=== PATIENT | male | born 1970 | race Two or more races ===

== ENCOUNTER 2018-06-14 21:03 | Inpatient (IN) | payer BC, MEDICAID ==
[~2018-06-14] VITALS: Ht 175.3 cm; Wt 86.6 kg
--- NOTE | 2018-06-14 21:09 | NUR ---
BBSELF FROM HOME C/C MIDSTERNAL CP NR 1 WEEK, WORSE TODAY. +N,V. DENIES SOB. PT PLACED ON HEALTH COACH AND POX. NO S/S OF ACUTE DISTRESS NOTED. RR EVEN AND UNLABORED. MD AWARE OF PT. WILL CONTINUE TO MONITOR.
[2018-06-14] MEDS ORDERED: LORAZEPAM 0.5 MG TABLET ONE (21:45)
[2018-06-14] MEDS ORDERED: ASPIRIN 81 MG TAB.CHEW ONE (21:45)
[2018-06-14] MEDS ORDERED: NITROGLYCERIN PACKET 1 GM PACKET ONE (21:45)
[2018-06-14] MEDS ORDERED: ASPIRIN 325 MG TABLET PO ONE (22:00)
[2018-06-14] MEDS ORDERED: LORAZEPAM 0.5 MG TABLET PO ONE (22:00)
[2018-06-14] MEDS ORDERED: NITROGLYCERIN PACKET 1 GM PACKET TD ONE (22:00)
[2018-06-14 22:13] LABS: BASOPHILS # (AUTO) 0.1 /CMM (0.0-0.2); BASOPHILS % (AUTO) 1.3 % (0.0-2.0); EOSINOPHILS % (AUTO) 0.5 % (0.0-6.0); HEMATOCRIT 43 % (39-51); HEMOGLOBIN 14.6 g/dL (13.5-17.5); LYMPHOCYTES # (AUTO) 2.7 /CMM (0.8-4.8); LYMPHOCYTES % (AUTO) 26.3 % (20.0-44.0); MEAN CORPUSCULAR HGB CONC 34 g/dl (31.0-36.0); MEAN CORPUSCULAR VOLUME 89 fL (80-96); MONOCYTES # (AUTO) 0.9 /CMM (0.1-1.30); MONOCYTES % (AUTO) 8.8 % (2.0-12.0); NEUTROPHILS # (AUTO) 6.4 /CMM (1.8-8.9); NEUTROPHILS % (AUTO) 63.1 % (43.0-81.0); PLATELET COUNT (AUTO) 326 /CMM (150-450); WHITE BLOOD COUNT (AUTO) 10.1 K/uL (4.3-11.0)
[2018-06-14] MEDS ORDERED: INSULIN REGULAR, HUMAN 100 UNIT/ML 10 ML VIAL ONE (22:24)
[2018-06-14] MEDS ORDERED: INSULIN REGULAR, HUMAN 100 UNIT/ML 10 ML VIAL SQ ONE (22:30)
[2018-06-14 22:33] LABS: ALANINE AMINOTRANSFERASE 24 U/L (12-78); ALBUMIN 2.7 g/dL (3.4-5.0); ALKALINE PHOSPHATASE 122 U/L (46-116); ASPARTATE AMINOTRANSFERASE 10 U/L (15-37); B-TYPE NATRIURETIC PEPTIDE 57 PG/ML (0-125); BILIRUBIN,TOTAL 0.3 mg/dL (0.2-1.0); CALCIUM, SERUM 8.1 mg/dL (8.5-10.1); CARBON DIOXIDE 23 mmol/L (21-32); CHLORIDE 97 mmol/L (98-107); CREATININE 1.2 mg/dL (0.6-1.3); POTASSIUM 3.7 mmol/L (3.5-5.1); SODIUM SERUM 129 mmol/L (136-145); TOTAL PROTEIN, SERUM 6.8 g/dL (6.4-8.2); UREA NITROGEN, BLOOD 15 mg/dL (7-18)
[2018-06-14 22:34] LABS: GLUCOSE 474 mg/dL (74-106)
[2018-06-14] MEDS ORDERED: DEXTROSE 50%-WATER 50 ML DISP.SYRIN IV PRN (23:30)
[2018-06-14] MEDS ORDERED: ONDANSETRON HCL/PF 4 MG/2 ML VIAL IVP PRN (23:30)
[2018-06-14] MEDS ORDERED: HYDROCODONE/APAP 5/325MG 1 EACH TABLET PO PRN (23:30)
[2018-06-14] MEDS ORDERED: HYDROCODONE/APAP 10/325MG 1 EA TABLET PO PRN (23:30)
[2018-06-14] MEDS ORDERED: Z GUARD REMEDY 2 OZ OINT TP PRN (23:30)
[2018-06-14] MEDS ORDERED: MAG HYDROX/AL HYDROX/SIMETH 30 ML UDC PO PRN (23:30)
[2018-06-14] MEDS ORDERED: ACETAMINOPHEN 325 MG TABLET PO PRN (23:30)
[2018-06-14] MEDS ORDERED: MAGNESIUM HYDROXIDE 30 ML UDC PO PRN (23:30)
--- NOTE | 2018-06-14 23:35 | NUR ---
Report given to Thelma MONSIVAIS for continuation of care.
--- NOTE | 2018-06-14 23:36 | NUR ---
PT ASSIGNED TO 322-1
[2018-06-15] VITALS (7 sets, daily range): BP systolic 116–145; BP diastolic 63–95
[2018-06-15] MEDS ORDERED: ENOXAPARIN SODIUM 40 MG/0.4 ML DISP.SYRIN SQ ONE (01:00)
[2018-06-15] MEDS ORDERED: NITROGLYCERIN 0.4 MG/TAB BOTTLE SL PRN (01:30)
[2018-06-15] MEDS: IV NS 0.9% 1,000 ML IV PRN ×2 (01:31→23:12)
[2018-06-15] MEDS ORDERED: CARV3.12 PO (01:40)
[2018-06-15] MEDS ORDERED: METF-442 PO (01:40)
[2018-06-15] MEDS ORDERED: DOXY100C41 PO (01:40)
[2018-06-15] MEDS ORDERED: LISI-603 PO (01:40)
[2018-06-15] MEDS ORDERED: ATOR80TA PO (01:40)
[2018-06-15] MEDS ORDERED: ASPI-605 PO (01:40)
[2018-06-15] MEDS ORDERED: ALLO100T PO (01:40)
[2018-06-15] MEDS: BLOOD SUGAR DIAGNOSTIC 1 EACH STRIP IN SCH ×4 (06:11→21:04)
--- NOTE | 2018-06-15 06:27 | NUR ---
GROMMET MACHINE OPERATOR NOTES AWAKE & RESPONSIVE. NOT IN ANY DISTRESS. NO SOB NOTED. DENIES ANY PAIN OR DISCOMFORT AT THIS TIME. ON TELE SR @ 70 WITH IVF INFUSING WELL. MONITORED ACCORDINGLY. CALL LIGHT WITHIN REACH. BED IN LOWEST POSITION. SR UP X2 FOR SAFETY. WILL ENDORSE TO NEXT SHIFT.
[2018-06-15 07:27] LABS: BASOPHILS # (AUTO) 0.1 /CMM (0.0-0.2); BASOPHILS % (AUTO) 0.7 % (0.0-2.0); EOSINOPHILS % (AUTO) 0.7 % (0.0-6.0); HEMATOCRIT 42 % (39-51); HEMOGLOBIN 14.4 g/dL (13.5-17.5); LYMPHOCYTES # (AUTO) 2.5 /CMM (0.8-4.8); LYMPHOCYTES % (AUTO) 28.9 % (20.0-44.0); MEAN CORPUSCULAR HGB CONC 34 g/dl (31.0-36.0); MEAN CORPUSCULAR VOLUME 87 fL (80-96); MONOCYTES # (AUTO) 0.8 /CMM (0.1-1.30); MONOCYTES % (AUTO) 8.9 % (2.0-12.0); NEUTROPHILS # (AUTO) 5.2 /CMM (1.8-8.9); NEUTROPHILS % (AUTO) 60.8 % (43.0-81.0); PLATELET COUNT (AUTO) 330 /CMM (150-450); RED BLOOD CELL COUNT(AUTO) 4.81 MIL/uL (4.5-6.0); WHITE BLOOD COUNT (AUTO) 8.6 K/uL (4.3-11.0)
[2018-06-15 07:43] LABS: CHOLESTEROL 194 mg/dL (<200); HDL CHOLESTEROL 29 mg/dL (40-60); LDL 93 mg/dL (0-99); THYROID STIMULATING HORMONE 2.077 uIU/mL (0.358-3.74); TRIGLYCERIDES 653 mg/dL (30-150)
[2018-06-15 07:45] LABS: CALCIUM, SERUM 8.6 mg/dL (8.5-10.1); CARBON DIOXIDE 24 mmol/L (21-32); CHLORIDE 100 mmol/L (98-107); CREATININE 0.9 mg/dL (0.6-1.3); MAGNESIUM 1.7 mg/dL (1.8-2.4); PHOSPHORUS 3.1 mg/dL (2.5-4.9); POTASSIUM 3.5 mmol/L (3.5-5.1); SODIUM SERUM 134 mmol/L (136-145); UREA NITROGEN, BLOOD 13 mg/dL (7-18)
[2018-06-15 07:49] LABS: GLUCOSE 354 mg/dL (74-106)
--- NOTE | 2018-06-15 07:56 | NUR ---
MARINE STEAMFITTER NOTES RECEIVED A CALL FROM EVELIN WONG DUE TO CRITICAL HGBA1C OF 354.
--- NOTE | 2018-06-15 07:56 | NUR ---
MASH FILTER PRESS OPERATOR OPENING NOTES RECEIVED PATIENT ON BED, A/O X 4 AND ABLE TO MAKE NEEDS KNOWN. RESPONSIVE TO ALL STIMULI. RESPIRATION EVEN AND NON LABORED WITH NO ACUTE RESPIRATORY DISTRESS. ABDOMEN SOFT AND NON DISTENDED WITH ACTIVE BOWEL SOUNDS. SKIN WARM TO TOUCH AND DRY. DENIES PAIN AND DISCOMFORT AT THIS TIME. IV SITE AT RIGHT HAND 20 GAUGE PATENT IN FLUSHING, SITE NO S/SX OF INFILTRATION RUNNING NS AT 50 ML/HR. PER TELE MONITOR WITH SR 93. ALL CONCERNS ADDRESSED, PLACED CALL LIGHT WITHIN REACH TO ENSURE SAFETY.
--- NOTE | 2018-06-15 08:00 | NUR ---
[facility] [employer] [facility] NOTES CRITICAL HGBA1C LEVEL PAGED TO DR. AGUILAR, WILL SEE PATIENT ON FLOOR. WILL CONTINUE TO EVALUATE PATIENT.
[2018-06-15] MEDS: ATORVASTATIN 40 MG TABLET PO SCH (08:41)
[2018-06-15] MEDS: METFORMIN 500 MG TABLET PO SCH ×2 (08:41→17:08)
[2018-06-15] MEDS: ASPIRIN EC 81 MG TABLET.DR PO SCH (08:41)
[2018-06-15] MEDS: LISINOPRIL (20MG) 20 MG TABLET PO SCH (08:41)
[2018-06-15] MEDS ORDERED: ALLOPURINOL 100 MG TABLET PO SCH (09:00)
[2018-06-15] MEDS ORDERED: CARVEDILOL 3.125 MG TABLET PO SCH (09:00)
[2018-06-15] MEDS ORDERED: ASPIRIN 81 MG TAB.CHEW PO SCH (09:00)
--- NOTE | 2018-06-15 09:45 | NUR ---
M/S RN NOTES BS 414, DR. AGUILAR MADE AWARE. LANTUS GIVEN 15 UNITS ORDERED ON LEFT DELTOID AND ABLE TO TOLERATE WELL. WILL CONTINUE TO EVALUATE CARE.
[2018-06-15] MEDS: INSULIN GLARGINE, 100 UNIT/ML CARTRIDGE SQ SCH ×2 (09:47→20:53)
[2018-06-15] MEDS: Magnesium 1GM/D5W 100ML PREMIX 100 ML IV SCH ×2 (10:53→11:50)
--- NOTE | 2018-06-15 11:25 | NUR ---
M/S RN NOTES PATIENT WHEELED VIA GURNEY FOR CT ANGIOGRAM HEART WITH AILYN.
[2018-06-15] MEDS ORDERED: IOHEXOL-350 100 ML VIAL IV ONE (11:30)
[2018-06-15] MEDS ORDERED: CT SWABBABLE VALVE TRANS SET 1 EA INFUS.SET MC ONE (11:31)
[2018-06-15] MEDS ORDERED: IV NS 0.9% 250 ML IV ONE (11:31)
[2018-06-15] MEDS ORDERED: VERAPAMIL HCL IV 5 MG/2 ML VIAL ONE (11:39)
[2018-06-15] MEDS ORDERED: NITROGLYCERIN 4.9 GM SPRAY SL ONE (12:00)
--- NOTE | 2018-06-15 12:12 | NUR ---
M/S RN NOTES PATIENT RETURNED TO [address] VERAPAMIL IV GIVEN PER AILYN. WILL CONTINUE TO EVALUATE CARE
[2018-06-15] MEDS: INSULIN REGULAR, HUMAN 100 UNIT/ML 3 ML VIAL SQ PRN ×3 (12:20→21:17)
[2018-06-15] MEDS: VERAPAMIL HCL IV 5 MG/2 ML VIAL IV ONE ×2 (12:26→12:49)
--- NOTE | 2018-06-15 12:26 | NUR ---
cta complete pt developed sob and diaphoretic midway scan nursing intervention inititated o2 mask checked bs 363 eventually pt started to feel better vs stable cta complete moved pt back to floor report given to rn in charge on the floor regarding findings and high blood sugar, notified dr. Grimaldo via phone regarding findings no new order to continue to monitor. pt back in room eating lunch awake alert x4
[2018-06-15] MEDS: IV NS 0.9% 500 ML IV ONE ×2 (12:42→12:49)
[2018-06-15] MEDS: METOPROLOL TARTRATE 50 MG TABLET PO SCH ×3 (12:43→23:11)
--- NOTE | 2018-06-15 12:50 | NUR ---
M/S RN NOTES NS 500, VERAPAMIL AND NITROLINGUAL SPRAY GIVEN AT CT. WILL CONTINUE TO MONITOR PATIENT.
--- NOTE | 2018-06-15 15:53 | NUR ---
MS/RN SPOKE WITH DR GUNN AND RELAYED PATIENT CTA RESULTS. PER DR GUNN, HE IS AWARE OF THE RESULTS, PLEASE ASK THE PATIENT IF HE CAN PROVIDE WHERE HE HAD HIS CABG DONE AND OPERATIVE NOTES. PATIENT NOTIFIED. WILL CONTINUE TO MONITOR FOR FURTHER CHANGES AND TO ENSURE SAFETY.
--- NOTE | 2018-06-15 16:48 | NUR ---
MS/RN PER PATIENT HE HAD CABG AND CARDIAC CATHETER PERFORMED AT [facility] IN 2014. SPOKE WITH HUGO FROM [facility] MEDICAL RECORDS, PROVIDED SOH 3W FAX # [phone] AND REQUEST FOR PATIENT MEDICAL RECORD INFORMATION. RECEIVED PATIENT MEDICAL RECORD INFORMATION FROM [facility] AND PLACED IN FRONT OF CHART. WILL NOTIFY CUPOLA MELTING SUPERVISOR IN AM.
--- NOTE | 2018-06-15 18:50 | NUR ---
M/S RN NOTES METFORMIN WILL BE PLACED IN FOR 48 HOURS DUE TO CTA WITH CONTRAST, BEGIN ON 06/18/2018 AM. WILL ENDORSE TO NEXT SHIFT.
--- NOTE | 2018-06-15 19:02 | NUR ---
M/S RN CLOSING NOTES PATIENT A/O X 4 AND ABLE TO MAKE NEEDS KNOWN, RESPONSIVE TO ALL STIMULI. RESPIRATION EVEN AND NON LABORED WITH NO ACUTE RESPIRATORY DISTRESS, ON O2 AT 3LPM VIA NASAL CANNULA AND TOLERATED WELL. ABDOMEN SOFT AND NON DISTENDED WITH ACTIVE BOWEL SOUNDS. SKIN WARM TO TOUCH AND DRY. PATIENT DENIES PAIN AND DISCOMFORT AT THIS TIME. IV SITE AT RIGHT AC GAUGE 18 AND RIGHT HAND GAUGE 20 PATENT IN FLUSHING. ALL CONCERNS ADDRESSED. PLACED CALL LIGHT WITHIN REACH FOR SAFETY. ENDORSED TO NEXT SHIFT.
--- NOTE | 2018-06-15 19:53 | NUR ---
RN OPENING NOTES RECEIVED PATIENT AWAKE, RESTING IN BED. PATIENT IS ALERT AND ORIENTED X 4. NO SIGNS OF RESPIRATORY DISTRESS OR SHORTNESS OF BREATH. PATIENT DENIES PAIN AT THIS TIME. IV SITE PATENT AND INTACT. CALL LIGHT WITHIN REACH. WILL CONTINUE TO MONITOR PATIENT THROUGHOUT THE SHIFT.
--- NOTE | 2018-06-15 21:55 | NUR ---
Met with patient at bedside. States he lives alone in [place], he is currently visiting his sister who lives in the [place]. States he is ambulatory and independent with adl's. States he is diabetic but does not monitor blood sugar at home. He was advised with the importance of monitoring his blood sugar and medication/diet compliance. States he has no pcp and will find pcp in [place] once he gets discharge. Addendum: 06/15/18 at 2155 by TITA MULLER RN Amended: Links added.
[2018-06-15] MEDS ORDERED: ENOXAPARIN SODIUM 40 MG/0.4 ML DISP.SYRIN SQ SCH (22:00)
[2018-06-16] MEDS: METOPROLOL TARTRATE 50 MG TABLET PO SCH (05:17)
[2018-06-16] MEDS: INSULIN REGULAR, HUMAN 100 UNIT/ML 3 ML VIAL SQ PRN (06:31)
--- NOTE | 2018-06-16 06:37 | NUR ---
RN CLOSING NOTES PATIENT IS RESTING COMFORTABLY IN BED. PATIENT HAS NO SIGNS OF RESPIRATORY DISTRESS OR SHORTNESS OF BREATH. PATIENT HAS NO SIGNS OF FACIAL GRIMACING AT THIS TIME. IV SITE PATENT AND INTACT. SAFETY PRECAUTIONS IMPLEMENTED. CALL LIGHT WITHIN REACH. NEEDS WERE MET DURING THE SHIFT. WILL ENDORSE TO ONCOMING AM RN.
--- NOTE | 2018-06-16 07:25 | NUR ---
M/S RN OPENING NOTES RECEIVED PATIENT ON BED SLEEPING BUT EASILY AROUSABLE, A/O X 4 AND ABLE TO MAKE NEEDS KNOWN. RESPONSIVE TO ALL STIMULI. RESPIRATION EVEN AND NON LABORED WITH NO ACUTE RESPIRATORY DISTRESS IN ROOM AIR. ABDOMEN SOFT AND NON DISTENDED WITH ACTIVE BOWEL SOUNDS TO ALL QUADRANTS. SKIN WARM TO TOUCH AND DRY. PATIENT DENIES PAIN AND DISCOMFORT. IV SITE AT RIGHT HAND GAUGE 20 AND RIGHT AC 18 GAUGE PATENT IN FLUSHING, SITE NO S/SX OF INFILTRATION. ALL CONCERNS ADDRESSED, PLACED CALL LIGHT WITHIN REACH TO ENSURE SAFETY. WILL CONTINUE TO EVALUATE CARE.
[2018-06-16] MEDS: BLOOD SUGAR DIAGNOSTIC 1 EACH STRIP IN SCH (07:44)
[2018-06-16 08:00] VITALS: BP 156/100
[2018-06-16] MEDS: ATORVASTATIN 40 MG TABLET PO SCH (08:43)
[2018-06-16 08:44] VITALS: BP 156/100
[2018-06-16] MEDS: LISINOPRIL (20MG) 20 MG TABLET PO SCH (08:44)
[2018-06-16] MEDS: ASPIRIN EC 81 MG TABLET.DR PO SCH (08:44)
[2018-06-16] MEDS ORDERED: VALSARTAN 80 MG TABLET PO SCH (09:00)
[2018-06-16] MEDS ORDERED: ALLOPURINOL 100 MG TABLET PO SCH (09:00)
[2018-06-16] MEDS: METFORMIN 500 MG TABLET PO SCH (09:00)
[2018-06-16] MEDS: INSULIN GLARGINE, 100 UNIT/ML CARTRIDGE SQ SCH (09:17)
--- NOTE | 2018-06-16 09:31 | NUR ---
M/S RN NOTES METFORMIN HELD DUE TO CTA WITH DYE DONE 06/15/18. PATIENT NOTIFIED. WILL CONTINUE TO MONITOR
[2018-06-16] MEDS ORDERED: MAGNESIUM OXIDE 400 MG TABLET PO ONE (10:00)
--- NOTE | 2018-06-16 10:43 | NUR ---
MS/RADAR SIGNAL PROCESSING ENGINEER PATIENT DISCHARGE HOME IN STABLE CONDITION. A/O X 4. NO SIGNS OF ACUTE DISTRESS. NO COMPLAIN OF PAIN OR DISCOMFORT. DISCHARGE EDUCATION AND TEACHINGS PROVIDED, NOTIFIED TO FOLLOW UP WITH PRIMARY PHYSICIAN AND SOLDER TECHNICIAN IN ONE WEEK. CONTINUE TO TAKE PRESCRIBED MEDICATIONS ORDERED. PRESCRIPTION PROVIDED. HOLD METFORMIN MEDICATION TODAY AND TOMORROW AND RESUME TAKING METFORMIN ORDERED ON 06/18/18. PATIENT VERBALIZED UNDERSTANDING. NAME BAND AND IV LINE REMOVED. ALL NEEDS ATTENDED TO. LEFT IN STABLE CONDITION ACCOMPANIED BY SISTER VIA PRIVATE CAR.
== END 2018-06-16 10:50 | disposition home or self-care (01) | DRG 303 ==
LOC: ER 21:03 → TELE 06-15 00:13 → MED 06-15 08:27
PROVIDERS: ADMIT Nurse Practitioner Acute Care; ATTEND Internal Medicine
DX: I25.110 Atherosclerotic heart disease of native coronary artery with unstable angina pectoris (principal); E44.0 Moderate protein-calorie malnutrition; E87.1 Hypo-osmolality and hyponatremia; E11.65 Type 2 diabetes mellitus with hyperglycemia; E78.5 Hyperlipidemia, unspecified; M1A.9XX1 Chronic gout, unspecified, with tophus (tophi); Z95.5 Presence of coronary angioplasty implant and graft; Z95.1 Presence of aortocoronary bypass graft; Z87.891 Personal history of nicotine dependence; Z83.3 Family history of diabetes mellitus; Z79.4 Long term (current) use of insulin; F15.90 Other stimulant use, unspecified, uncomplicated; J44.9 Chronic obstructive pulmonary disease, unspecified; I10 Essential (primary) hypertension; Z88.2 Allergy status to sulfonamides; F10.10 Alcohol abuse, uncomplicated; Y90.9 Presence of alcohol in blood, level not specified; Z79.82 Long term (current) use of aspirin; Z79.84 Long term (current) use of oral hypoglycemic drugs; Z79.899 Other long term (current) drug therapy; E86.1 Hypovolemia
CPT/HCPCS: 36415; 71045-TC; 75574; 80048-TC; 80061-TC; 80076-TC; 82962-TC; 83735-TC; 83880; 84100-TC; 84443-TC; 84484-TC; 84550-TC; 85025-TC; 87081-TC; 93307-TC; G0378; J1650; J1815; J3475; J3490; J7030; J7040; J7050; Q9967

== ENCOUNTER 2018-07-24 17:06 | Emergency (ER) | payer BC, MEDICAID ==
[~2018-07-24] VITALS: Ht 170.2 cm; Wt 93.0 kg
[~2018-07-24 17:06] MED LIST: ALLO100T PO; ASPI-605 PO; ATOR80TA PO; LISI-603 PO; METF-442 PO
--- NOTE | 2018-07-24 17:30 | NUR ---
CAME IN FOR COUGH x 1 WEEK, PT NOTED W GREENISH PHLEGM WHEN COUGHING, ALSO C/O CONGESTION AND CHEST PAIN WHEN COUGHING. TO ER BED 11, HOOKED TO MONITOR, PROVIDED W WARM BLANKET, AWAITING MD CHANDLER
[2018-07-24] MEDS ORDERED: NITROGLYCERIN PACKET 1 GM PACKET ONE (18:04)
[2018-07-24] MEDS ORDERED: ASPIRIN 325 MG TABLET ONE (18:04)
[2018-07-24] MEDS: ASPIRIN 325 MG TABLET PO ONE (18:07)
--- NOTE | 2018-07-24 18:08 | NUR ---
CALLED NURSING SUP FOR TELE BED
[2018-07-24] MEDS: NITROGLYCERIN PACKET 1 GM PACKET TOP ONE (18:09)
[2018-07-24] MEDS ORDERED: METF-440 PO (18:15)
[2018-07-24] MEDS ORDERED: FEBU40TA PO (18:15)
[2018-07-24] MEDS ORDERED: INSU100V7 SQ (18:15)
[2018-07-24] MEDS ORDERED: ALBU8.5H8 IH (18:15)
[2018-07-24] MEDS ORDERED: ALBUTEROL FS 2.5 MG/3 ML VIAL.NEB ONE (18:33)
[2018-07-24] MEDS ORDERED: IPRATROPIUM NEB FS 0.5 MG/2.5 ML AMPUL.NEB ONE (18:33)
[2018-07-24 18:35] LABS: BASOPHILS # (AUTO) 0.1 /CMM (0.0-0.2); BASOPHILS % (AUTO) 1.2 % (0.0-2.0); EOSINOPHILS % (AUTO) 0.1 % (0.0-6.0); HEMATOCRIT 47 % (39-51); HEMOGLOBIN 16.1 g/dL (13.5-17.5); LYMPHOCYTES # (AUTO) 1.7 /CMM (0.8-4.8); LYMPHOCYTES % (AUTO) 28.6 % (20.0-44.0); MEAN CORPUSCULAR HGB CONC 35 g/dl (31.0-36.0); MEAN CORPUSCULAR VOLUME 88 fL (80-96); MONOCYTES # (AUTO) 0.9 /CMM (0.1-1.30); MONOCYTES % (AUTO) 14.7 % (2.0-12.0); NEUTROPHILS # (AUTO) 3.3 /CMM (1.8-8.9); NEUTROPHILS % (AUTO) 55.4 % (43.0-81.0); PLATELET COUNT (AUTO) 188 /CMM (150-450)
[2018-07-24] MEDS: ALBUTEROL FS 2.5 MG/3 ML VIAL.NEB NEB ONE (18:38)
[2018-07-24] MEDS: IPRATROPIUM NEB FS 0.5 MG/2.5 ML AMPUL.NEB NEB ONE (18:38)
--- NOTE | 2018-07-24 18:38 | NUR ---
RT AT BEDSIDE, STARTED WITH BREATHING TREATMENT
[2018-07-24 19:06] LABS: CALCIUM, SERUM 8.9 mg/dL (8.5-10.1); CARBON DIOXIDE 25 mmol/L (21-32); CHLORIDE 104 mmol/L (98-107); GLUCOSE 180 mg/dL (74-106); POTASSIUM 4.1 mmol/L (3.5-5.1); SODIUM SERUM 140 mmol/L (136-145); UREA NITROGEN, BLOOD 14 mg/dL (7-18)
[2018-07-24] MEDS ORDERED: HYDROCODONE BIT/HOMATROPINE 5 ML UDC ONE (19:07)
[2018-07-24] MEDS: HYDROCODONE BIT/HOMATROPINE 5 ML UDC PO ONE (19:11)
[2018-07-24 19:12] LABS: ALANINE AMINOTRANSFERASE 31 U/L (12-78); ALBUMIN 3.8 g/dL (3.4-5.0); ALKALINE PHOSPHATASE 104 U/L (46-116); ASPARTATE AMINOTRANSFERASE 20 U/L (15-37); BILIRUBIN,TOTAL 0.4 mg/dL (0.2-1.0); TOTAL PROTEIN, SERUM 7.6 g/dL (6.4-8.2)
[2018-07-24] MEDS: LISINOPRIL (20MG) 20 MG TABLET PO ONE (19:17)
--- NOTE | 2018-07-24 19:19 | NUR ---
REPORT GIVEN TO NADJA ROMAN RN FOR ZEENAT
--- NOTE | 2018-07-24 19:27 | NUR ---
RECEIVED REPORT FROM YODIT PERRY FOR ZEENAT. PT IS AAOX4, NOT IN RESPIRATORY DISTRESS, WILL CONTINUE TO MONITOR.
--- NOTE | 2018-07-24 20:10 | NUR ---
SANDWICH PROVIDED, AWAITING REPEAT TROPONIN.
--- NOTE | 2018-07-24 20:22 | NUR ---
KI SEBD TEACHER AT BEDSIDE FOR EVAL.
[2018-07-24] MEDS ORDERED: GUAIFENESIN 300 MG/15 ML UDC ONE (21:02)
[2018-07-24] MEDS: GUAIFENESIN 300 MG/15 ML UDC PO ONE (21:04)
--- NOTE | 2018-07-25 00:23 | NUR ---
REPEAT EKG AND TROPONIN DONE. WAITING RESULT.
[2018-07-25] MEDS ORDERED: predniSONE 20 MG TABLET ONE (01:16)
[2018-07-25] MEDS ORDERED: ALPRAZOLAM 0.5 MG TABLET ONE (01:16)
[2018-07-25] MEDS: ALPRAZOLAM 0.5 MG TABLET PO ONE (01:20)
[2018-07-25] MEDS: predniSONE 20 MG TABLET PO ONE (01:20)
[2018-07-25 01:21] VITALS: BP 128/82
--- NOTE | 2018-07-25 01:21 | NUR ---
IV removed. Catheter intact and site benign. Pressure and 4x4 applied to site. No bleeding noted. Patient discharged to home in stable condition. Written and verbal after care instructions given. Patient verbalizes understanding of instruction AND RX.
== END 2018-07-25 01:23 | disposition home or self-care (01) ==
LOC: ER 17:06
DX: J44.1 Chronic obstructive pulmonary disease with (acute) exacerbation (principal); F15.10 Other stimulant abuse, uncomplicated; I10 Essential (primary) hypertension; F12.10 Cannabis abuse, uncomplicated; E11.9 Type 2 diabetes mellitus without complications; E78.00 Pure hypercholesterolemia, unspecified; F10.10 Alcohol abuse, uncomplicated; F03.90 Unspecified dementia, unspecified severity, without behavioral disturbance, psychotic disturbance, mood disturbance, and anxiety; Y90.9 Presence of alcohol in blood, level not specified; Z87.891 Personal history of nicotine dependence; Z79.4 Long term (current) use of insulin; Z79.82 Long term (current) use of aspirin; Z88.2 Allergy status to sulfonamides; Z95.5 Presence of coronary angioplasty implant and graft; Z86.73 Personal history of transient ischemic attack (TIA), and cerebral infarction without residual deficits; Z95.1 Presence of aortocoronary bypass graft; Z94.1 Heart transplant status
CPT/HCPCS: 36415 ×2; 71045; 80048; 80076; 84484 ×2; 85025; 85610; 85730 ×2; 87081; 93005 ×2; 94640; 99284; J7512

== ENCOUNTER 2018-07-25 05:41 | Emergency (ER) | payer BC, MEDICAID ==
[~2018-07-25] VITALS: Ht 170.2 cm; Wt 95.3 kg
[~2018-07-25 05:41] MED LIST changes: +ALBU8.5H8 IH; +FEBU40TA PO; +INSU100V7 SQ; +METF-440 PO
[2018-07-25] MEDS: ALBUTEROL FS 2.5 MG/3 ML VIAL.NEB CONTNEB ONE (06:19)
--- NOTE | 2018-07-25 06:20 | NUR ---
BIBSELF C/O CHEST TIGHTNESS WITH PRODUCTIVE COUGH. +GREEN SPUTUM PT WAS JUST RECENTLY (5 HRS AGO) D/C'D FROM [facility] ER W/ DX OF ACUT EBRONCHITIS. HAS NOT REFILLED HIS PRESCRIPTION YET. PLACED ON A MONITOR , VSS. WILL CONT TO MONITOR ,
[2018-07-25] MEDS ORDERED: ALBUTEROL FS 2.5 MG/3 ML VIAL.NEB ONE (06:21)
[2018-07-25] MEDS ORDERED: GUAIFENESIN/CODEINE 10 ML UDC ONE (06:26)
[2018-07-25] MEDS: GUAIFENESIN/CODEINE 10 ML UDC PO PRN (06:27)
[2018-07-25] MEDS: CODEINE/PROMETHAZINE HCL 5 ML UDC PO ONE (06:29)
--- NOTE | 2018-07-25 07:25 | NUR ---
Patient discharged to home in stable condition.RX AND Written and verbal after care instructions given. Patient verbalizes understanding of instruction.
[2018-07-25 07:31] VITALS: BP 142/87
== END 2018-07-25 07:31 | disposition home or self-care (01) ==
LOC: ER 05:46
DX: J20.9 Acute bronchitis, unspecified (principal); I25.10 Atherosclerotic heart disease of native coronary artery without angina pectoris; F15.10 Other stimulant abuse, uncomplicated; I10 Essential (primary) hypertension; J44.9 Chronic obstructive pulmonary disease, unspecified; E11.9 Type 2 diabetes mellitus without complications; E78.00 Pure hypercholesterolemia, unspecified; F10.10 Alcohol abuse, uncomplicated; Y90.9 Presence of alcohol in blood, level not specified; Z95.1 Presence of aortocoronary bypass graft; Z95.5 Presence of coronary angioplasty implant and graft; Z88.2 Allergy status to sulfonamides; Z87.891 Personal history of nicotine dependence; Z79.82 Long term (current) use of aspirin; Z79.4 Long term (current) use of insulin

== ENCOUNTER 2019-02-12 20:41 | Emergency (ER) | payer BC, OTHER ==
[~2019-02-12] VITALS: Ht 170.2 cm; Wt 84.4 kg
[~2019-02-12 20:41] MED LIST changes: -ALLO100T PO; -METF-442 PO
[2019-02-12 20:49] VITALS: BP 158/99
== END 2019-02-12 21:27 | disposition home or self-care (01) ==
LOC: ER 20:43
DX: L02.212 Cutaneous abscess of back [any part, except buttock and flank] (principal); I10 Essential (primary) hypertension; J44.9 Chronic obstructive pulmonary disease, unspecified; E11.9 Type 2 diabetes mellitus without complications; E78.00 Pure hypercholesterolemia, unspecified; M10.9 Gout, unspecified; Z95.818 Presence of other cardiac implants and grafts; Z88.2 Allergy status to sulfonamides; Z87.891 Personal history of nicotine dependence; Z79.899 Other long term (current) drug therapy; Z79.4 Long term (current) use of insulin; Z79.82 Long term (current) use of aspirin

== ENCOUNTER 2019-11-03 01:41 | Emergency (ER) | payer BC, OTHER ==
[~2019-11-03] VITALS: Ht 170.2 cm; Wt 83.9 kg
--- NOTE | 2019-11-03 01:48 | NUR ---
PT AAOX4. BIBRA C/O CP NON RADIATING SINCE 1800/ NO ACUTE DISTRESS NOTED. VSS. PT PALCED IN BED ON MONITOR AND PULSE OX. AWAITING MD FOR EVAL AND ORDERS. WILL CONTINUE TO MONITOR.
--- NOTE | 2019-11-03 01:52 | NUR ---
CALLED FOR COVID SWAB
[2019-11-03 02:08] LABS: BASOPHILS # (AUTO) 0.1 /CMM (0.0-0.2); EOSINOPHILS % (AUTO) 0.8 % (0.0-6.0); HEMATOCRIT 42 % (39-51); LYMPHOCYTES # (AUTO) 2.5 /CMM (0.8-4.8); LYMPHOCYTES % (AUTO) 27.1 % (20.0-44.0); MEAN CORPUSCULAR HGB CONC 33 g/dl (31.0-36.0); MEAN CORPUSCULAR VOLUME 88 fL (80-96); MONOCYTES # (AUTO) 0.6 /CMM (0.1-1.30); MONOCYTES % (AUTO) 6.9 % (2.0-12.0); NEUTROPHILS # (AUTO) 5.9 /CMM (1.8-8.9); NEUTROPHILS % (AUTO) 64.2 % (43.0-81.0); PLATELET COUNT (AUTO) 391 /CMM (150-450); RED BLOOD CELL COUNT(AUTO) 4.78 MIL/uL (4.5-6.0); WHITE BLOOD COUNT (AUTO) 9.2 K/uL (4.3-11.0)
--- NOTE | 2019-11-03 02:19 | NUR ---
Patient does not wish to proceed with medical care recommended by Dr. Serrano. Patient given information related to possible complications, up to and including , which could occur as a result of leaving the hospital at this time. Patient verbalizes understanding of risks involved due to leaving against medical advice. Patient has signed AMA form.
[2019-11-03 02:20] VITALS: BP 135/89
--- NOTE | 2019-11-03 02:20 | NUR ---
IV removed. Catheter intact and site benign. Pressure and 4x4 applied to site. No bleeding noted.
[2019-11-03 02:29] LABS: ALBUMIN 2.6 g/dL (3.4-5.0); BILIRUBIN,DIRECT 0.1 mg/dL (0.0-0.2); BILIRUBIN,TOTAL 0.2 mg/dL (0.2-1.0); CALCIUM, SERUM 8.4 mg/dL (8.5-10.1); CREATININE 1.3 mg/dL (0.6-1.3); POTASSIUM 3.8 mmol/L (3.5-5.1)
== END 2019-11-03 02:33 | disposition left against medical advice (07) ==
LOC: ER 01:43
DX: R07.89 Other chest pain (principal); I10 Essential (primary) hypertension; J44.9 Chronic obstructive pulmonary disease, unspecified; E11.9 Type 2 diabetes mellitus without complications; E78.00 Pure hypercholesterolemia, unspecified; M10.9 Gout, unspecified; Z95.818 Presence of other cardiac implants and grafts; Z88.2 Allergy status to sulfonamides; Z79.899 Other long term (current) drug therapy; Z79.84 Long term (current) use of oral hypoglycemic drugs; Z79.4 Long term (current) use of insulin; Z79.82 Long term (current) use of aspirin; Z87.891 Personal history of nicotine dependence
CPT/HCPCS: 36415; 80048-TC; 80076-TC; 83880; 84484-TC; 85025-TC

== ENCOUNTER 2020-05-27 11:11 | Emergency (ER) | payer BC, OTHER ==
[~2020-05-27] VITALS: Ht 170.2 cm; Wt 82.6 kg
[~2020-05-27 11:11] MED LIST changes: -LISI-603 PO; +LISI20TA30 PO
--- NOTE | 2020-05-27 11:38 | NUR ---
BIBRA TO ER BED 7. AAOX4. NOT IN RESP DISTRESS. BROUGHT IN FOR EPIGASTRIC PAIN SINCE THIS MORNING. PAIN IS 10/10. REPORTS NAUSEA AND VOMMITNG. PT IS NOTED HYPERTENSIVE. AWAITING MD FOR EVAL.
[2020-05-27 12:48] LABS: BASOPHILS # (AUTO) 0.1 /CMM (0.0-0.2); BASOPHILS % (AUTO) 1.1 % (0.0-2.0); EOSINOPHILS % (AUTO) 0.2 % (0.0-6.0); HEMATOCRIT 46 % (39-51); HEMOGLOBIN 15.8 g/dL (13.5-17.5); LYMPHOCYTES # (AUTO) 2.4 /CMM (0.8-4.8); LYMPHOCYTES % (AUTO) 21.7 % (20.0-44.0); MEAN CORPUSCULAR HGB CONC 35 g/dl (31.0-36.0); MEAN CORPUSCULAR VOLUME 85 fL (80-96); MONOCYTES # (AUTO) 0.6 /CMM (0.1-1.30); MONOCYTES % (AUTO) 5.3 % (2.0-12.0); NEUTROPHILS % (AUTO) 71.7 % (43.0-81.0); PLATELET COUNT (AUTO) 320 /CMM (150-450); RED BLOOD CELL COUNT(AUTO) 5.34 MIL/uL (4.5-6.0); WHITE BLOOD COUNT (AUTO) 11.2 K/uL (4.3-11.0)
[2020-05-27 12:52] LABS: CALCIUM, SERUM 8.9 mg/dL (8.5-10.1); CREATININE 1.2 mg/dL (0.6-1.3); POTASSIUM 3.7 mmol/L (3.5-5.1)
[2020-05-27 12:58] LABS: ALBUMIN 3.5 g/dL (3.4-5.0); BILIRUBIN,DIRECT 0.1 mg/dL (0.0-0.2); BILIRUBIN,TOTAL 0.5 mg/dL (0.2-1.0); TOTAL PROTEIN, SERUM 7.6 g/dL (6.4-8.2)
[2020-05-27] MEDS ORDERED: LORAZEPAM INJ 2 MG/ML VIAL IV ONE (13:00)
[2020-05-27] MEDS ORDERED: ONDANSETRON HCL/PF 4 MG/2 ML VIAL IVP ONE (13:00)
[2020-05-27] MEDS ORDERED: IV NS 0.9% 500 ML BAG IV ONE (13:00)
[2020-05-27] MEDS ORDERED: MORPHINE SULFATE INJ 2 MG/ML DISP.SYRIN IV ONE (13:00)
[2020-05-27] MEDS ORDERED: ONDANSETRON HCL/PF 4 MG/2 ML VIAL ONE (13:12)
[2020-05-27] MEDS ORDERED: MORPHINE SULFATE INJ 4 MG/ML DISP.SYRIN ONE (13:12)
[2020-05-27] MEDS ORDERED: LORAZEPAM INJ 2 MG/ML VIAL ONE (13:13)
[2020-05-27] MEDS ORDERED: ONDA4TAB5 PO (13:23)
--- NOTE | 2020-05-27 13:59 | NUR ---
Patient discharged to home in stable condition. Written and verbal after care instructions given. Patient verbalizes understanding of instruction.IV removed. Catheter intact and site benign. Pressure and 4x4 applied to site. No bleeding noted. Pt ambulatory with a steady gait
[2020-05-27 14:01] VITALS: BP 168/93
== END 2020-05-27 14:02 | disposition home or self-care (01) ==
LOC: ER 11:18
DX: R11.2 Nausea with vomiting, unspecified (principal); R10.13 Epigastric pain; I10 Essential (primary) hypertension; J44.9 Chronic obstructive pulmonary disease, unspecified; E11.9 Type 2 diabetes mellitus without complications; M10.9 Gout, unspecified; E78.00 Pure hypercholesterolemia, unspecified; Z95.818 Presence of other cardiac implants and grafts; Z88.2 Allergy status to sulfonamides; Z87.891 Personal history of nicotine dependence; Z79.899 Other long term (current) drug therapy; Z79.84 Long term (current) use of oral hypoglycemic drugs; Z79.82 Long term (current) use of aspirin
CPT/HCPCS: 36415; 80048; 80076; 83690; 85025; 96374; 96375; 99284; J2060; J2270; J2405; J7040

== ENCOUNTER 2022-01-28 13:20 | Emergency (ER) | payer BC, OTHER ==
[~2022-01-28] VITALS: Ht 167.6 cm; Wt 86.2 kg
[~2022-01-28 13:20] MED LIST changes: +ONDA4TAB5 PO
--- NOTE | 2022-01-28 13:32 | NUR ---
To ER bed 3, bibs "Been Having Abdominal pain since last night", aaox3, breathing even and non labored, connected to monitor, awaiting md baltazar
[2022-01-28 14:07] LABS: BASOPHILS % (AUTO) 0.3 % (0.0-2.0); HEMATOCRIT 46 % (39-51); HEMOGLOBIN 15.3 g/dL (13.5-17.5); LYMPHOCYTES # (AUTO) 0.6 K/uL (0.8-4.8); LYMPHOCYTES % (AUTO) 5.3 % (20.0-44.0); MEAN CORPUSCULAR HGB CONC 33 g/dl (31.0-36.0); MEAN CORPUSCULAR VOLUME 86 fL (80-96); MONOCYTES # (AUTO) 0.6 K/uL (0.1-1.30); MONOCYTES % (AUTO) 5.9 % (2.0-12.0); NEUTROPHILS # (AUTO) 9.4 K/uL (1.8-8.9); NEUTROPHILS % (AUTO) 88.5 % (43.0-81.0); PLATELET COUNT (AUTO) 417 K/uL (150-450); RED BLOOD CELL COUNT(AUTO) 5.37 MIL/uL (4.5-6.0); WHITE BLOOD COUNT (AUTO) 10.6 K/uL (4.3-11.0)
[2022-01-28] MEDS ORDERED: CLONIDINE HCL 0.1 MG TABLET ONE (14:15)
[2022-01-28] MEDS ORDERED: MORPHINE SULFATE INJ 4 MG/ML DISP.SYRIN ONE (14:15)
[2022-01-28] MEDS ORDERED: ONDANSETRON HCL/PF 4 MG/2 ML VIAL ONE (14:21)
[2022-01-28] MEDS ORDERED: MORPHINE SULFATE INJ 2 MG/ML DISP.SYRIN IV ONE (14:30)
[2022-01-28] MEDS ORDERED: ONDANSETRON HCL/PF 4 MG/2 ML VIAL IV ONE (14:30)
[2022-01-28] MEDS ORDERED: CLONIDINE HCL 0.1 MG TABLET PO ONE (14:30)
--- NOTE | 2022-01-28 14:53 | NUR ---
[facility]STER TRAV [phone]
[2022-01-28 15:07] LABS: ALBUMIN 3.2 g/dL (3.4-5.0); BILIRUBIN,DIRECT 0.1 mg/dL (0.0-0.2); BILIRUBIN,TOTAL 0.6 mg/dL (0.2-1.0); CALCIUM, SERUM 8.5 mg/dL (8.5-10.1); CREATININE 1.6 mg/dL (0.6-1.3); POTASSIUM 3.3 mmol/L (3.5-5.1); TOTAL PROTEIN, SERUM 7.6 g/dL (6.4-8.2)
--- NOTE | 2022-01-28 15:11 | NUR ---
CONFIRMED RECEIVED BY LAB PER MOSHE
[2022-01-28] MEDS ORDERED: KETO10TA2 PO ×2 (15:23→15:45)
[2022-01-28] MEDS ORDERED: AMLO-213 PO ×2 (15:23→15:45)
[2022-01-28] MEDS ORDERED: ONDA4TAB11 PO ×2 (15:23→15:45)
[2022-01-28 15:28] LABS: BILIRUBIN,URINE NEGATIVE (NEGATIVE); COLOR,URINE YELLOW (YELLOW); LEUKOCYTE ESTERASE ,URINE NEGATIVE (NEGATIVE); NITRITE, URINE NEGATIVE (NEGATIVE); PROTEIN,URINE 3+ mg/dl (NEGATIVE); UGLUCOSE 1+ mg/dL (NEGATIVE); UROBILINOGEN,URINE 0.2 EU/dL (0.2)
--- NOTE | 2022-01-28 15:58 | NUR ---
IV removed. Catheter intact and site benign. Pressure and 4x4 applied to site. No bleeding noted.Patient discharged to home in stable condition. Written and verbal after care instructions given. Patient verbalizes understanding of instruction.
[2022-01-28 16:01] VITALS: BP 132/78
[2022-01-28 16:06] LABS: BACTERIA,URINE 2+ /HPF (None Seen)
[2022-01-28 16:07] LABS: SQUAMOUS EPITHELIAL CELL,UR Moderate /HPF (None Seen)
== END 2022-01-28 16:02 | disposition home or self-care (01) ==
LOC: ER 13:31
DX: A05.9 Bacterial foodborne intoxication, unspecified (principal); R11.2 Nausea with vomiting, unspecified; I10 Essential (primary) hypertension; J44.9 Chronic obstructive pulmonary disease, unspecified; E11.9 Type 2 diabetes mellitus without complications; E78.00 Pure hypercholesterolemia, unspecified; Z88.2 Allergy status to sulfonamides; Z79.899 Other long term (current) drug therapy
CPT/HCPCS: 99285; 96374; 96375; 85025; 80048; 87086; 83690; 80076; 81001; 36415; J2270; J2405

== ENCOUNTER 2022-03-28 04:18 | Emergency (ER) | payer BC, OTHER ==
[~2022-03-28] VITALS: Ht 170.2 cm; Wt 80.7 kg
[~2022-03-28 04:18] MED LIST changes: +AMLO-213 PO; +KETO10TA2 PO; +ONDA4TAB11 PO
[2022-03-28 04:30] VITALS: BP 212/117
--- NOTE | 2022-03-28 04:30 | NUR ---
BIBS FOR C/O R ANKLE PAIN WITH HX OF GOUT
[2022-03-28] MEDS ORDERED: INDO50CA92 PO (04:45)
[2022-03-28] MEDS ORDERED: KETOROLAC TROMETHAMINE INJ 60 MG/2 ML VIAL IM ONE ×2 (04:49→05:00)
[2022-03-28] MEDS ORDERED: COLCHICINE 0.6 MG TABLET ONE (04:50)
--- NOTE | 2022-03-28 04:53 | NUR ---
Patient discharged to home in stable condition. Written and verbal after care instructions given. Patient verbalizes understanding of instruction. Patient ambulatory with steady gait.
[2022-03-28] MEDS ORDERED: COLCHICINE 0.6 MG TABLET PO ONE ×2 (05:00)
== END 2022-03-28 04:59 | disposition home or self-care (01) ==
LOC: ER 04:22
DX: M10.9 Gout, unspecified (principal); I10 Essential (primary) hypertension; J44.9 Chronic obstructive pulmonary disease, unspecified; E11.9 Type 2 diabetes mellitus without complications; E78.00 Pure hypercholesterolemia, unspecified; Z95.1 Presence of aortocoronary bypass graft; Z88.2 Allergy status to sulfonamides; Z79.84 Long term (current) use of oral hypoglycemic drugs; Z79.82 Long term (current) use of aspirin; Z79.899 Other long term (current) drug therapy; Z87.891 Personal history of nicotine dependence
CPT/HCPCS: 99283; 96372; J1885

== ENCOUNTER 2022-05-06 17:29 | Emergency (ER) | payer BC, OTHER ==
[~2022-05-06] VITALS: Ht 170.2 cm; Wt 80.7 kg
[~2022-05-06 17:29] MED LIST changes: +INDO50CA92 PO
--- NOTE | 2022-05-06 17:35 | NUR ---
RECEIVED PT 51 YRS MALE CAME FROM HOME C/O I HAVE HERNEA DINESES ABDOMINAL PAIN RESTING AND COMFORTABLE
--- NOTE | 2022-05-06 18:38 | NUR ---
URINE SAMPLE OBTAINED
--- NOTE | 2022-05-06 18:55 | NUR ---
BLOOD DROW BY LAB TACH
[2022-05-06 19:05] LABS: BILIRUBIN,URINE NEGATIVE (NEGATIVE); COLOR,URINE YELLOW (YELLOW); LEUKOCYTE ESTERASE ,URINE NEGATIVE (NEGATIVE); NITRITE, URINE NEGATIVE (NEGATIVE); PROTEIN,URINE 3+ mg/dl (NEGATIVE); UGLUCOSE NEGATIVE (NEGATIVE); UROBILINOGEN,URINE 0.2 EU/dL (0.2)
[2022-05-06] MEDS ORDERED: IOHEXOL-300 100 ML VIAL IV ONE (19:19)
--- NOTE | 2022-05-06 19:19 | NUR ---
TO CT scan with iv contrast
[2022-05-06] MEDS ORDERED: IV NS 0.9% 250 ML IV ONE (19:20)
[2022-05-06] MEDS ORDERED: CT SWABBABLE VALVE TRANS SET 1 EA INFUS.SET MC ONE (19:20)
--- NOTE | 2022-05-06 19:32 | NUR ---
HAND OFF FELIPE MONSIVAIS
[2022-05-06 19:49] LABS: BASOPHILS % (AUTO) 0.3 % (0.0-2.0); EOSINOPHILS % (AUTO) 0.4 % (0.0-6.0); HEMATOCRIT 45 % (39-51); HEMOGLOBIN 14.6 g/dL (13.5-17.5); LYMPHOCYTES # (AUTO) 1.7 K/uL (0.8-4.8); LYMPHOCYTES % (AUTO) 19.8 % (20.0-44.0); MEAN CORPUSCULAR HGB CONC 33 g/dl (31.0-36.0); MEAN CORPUSCULAR VOLUME 85 fL (80-96); MONOCYTES # (AUTO) 0.5 K/uL (0.1-1.30); MONOCYTES % (AUTO) 5.4 % (2.0-12.0); NEUTROPHILS # (AUTO) 6.3 K/uL (1.8-8.9); NEUTROPHILS % (AUTO) 74.1 % (43.0-81.0); PLATELET COUNT (AUTO) 322 K/uL (150-450); RED BLOOD CELL COUNT(AUTO) 5.28 MIL/uL (4.5-6.0); WHITE BLOOD COUNT (AUTO) 8.5 K/uL (4.3-11.0)
[2022-05-06 19:50] LABS: BACTERIA,URINE Few /HPF (None Seen); SQUAMOUS EPITHELIAL CELL,UR Few /HPF (None Seen)
[2022-05-06 19:51] LABS: COARSE GRANULAR CASTS,URINE Few /LPF (None Seen)
[2022-05-06 19:54] LABS: ALBUMIN 3.2 g/dL (3.4-5.0); BILIRUBIN,DIRECT 0.1 mg/dL (0.0-0.2); BILIRUBIN,TOTAL 0.3 mg/dL (0.2-1.0); CALCIUM, SERUM 8.3 mg/dL (8.5-10.1); CREATININE 1.7 mg/dL (0.6-1.3); POTASSIUM 4.1 mmol/L (3.5-5.1); TOTAL PROTEIN, SERUM 6.9 g/dL (6.4-8.2)
[2022-05-06] MEDS ORDERED: IV NS 0.9% 1,000 ML IV ONE (21:00)
[2022-05-06] MEDS ORDERED: AMLODIPINE BESYLATE 5 MG TABLET PO ONE (21:30)
[2022-05-06] MEDS ORDERED: LISINOPRIL (20MG) 20 MG TABLET PO ONE (21:30)
[2022-05-06] MEDS ORDERED: AMLODIPINE BESYLATE 10 MG TABLET ONE (21:42)
[2022-05-06] MEDS ORDERED: LISINOPRIL (20MG) 20 MG TABLET ONE (21:43)
[2022-05-06] MEDS ORDERED: ATOR80TA PO (21:49)
[2022-05-06] MEDS ORDERED: AMLO-213 PO (21:49)
[2022-05-06] MEDS ORDERED: LISI20TA30 PO (21:49)
[2022-05-06 22:26] VITALS: BP 148/96
== END 2022-05-06 22:26 | disposition home or self-care (01) ==
LOC: ER 17:40
DX: K40.90 Unilateral inguinal hernia, without obstruction or gangrene, not specified as recurrent (principal); N28.9 Disorder of kidney and ureter, unspecified; I10 Essential (primary) hypertension; E86.0 Dehydration; E11.9 Type 2 diabetes mellitus without complications; E78.00 Pure hypercholesterolemia, unspecified; J44.9 Chronic obstructive pulmonary disease, unspecified; Z87.442 Personal history of urinary calculi; Z88.2 Allergy status to sulfonamides; Z79.84 Long term (current) use of oral hypoglycemic drugs; Z79.4 Long term (current) use of insulin; Z79.899 Other long term (current) drug therapy
CPT/HCPCS: 99285; 74177; 96360; 85025; 80048; 80076; 81001; 36415; J7030; J7050; Q9967

== ENCOUNTER 2022-05-07 12:26 | Emergency (ER) | payer BC, OTHER ==
[~2022-05-07] VITALS: Ht 170.2 cm; Wt 80.7 kg
--- NOTE | 2022-05-07 13:08 | NUR ---
C/O NAUSEA X THIS MORNING. DENIES VOMITING/DIARRHEA
--- NOTE | 2022-05-07 13:17 | NUR ---
Patient discharged to home in stable condition. Written and verbal after care instructions given by Dr. Hewitt. Patient verbalizes understanding of instruction. written instructions given by Dr. Hewitt at bedside
[2022-05-07 13:19] VITALS: BP 168/79
== END 2022-05-07 13:20 | disposition home or self-care (01) ==
LOC: ER 12:32
DX: R11.0 Nausea (principal); I10 Essential (primary) hypertension; E78.5 Hyperlipidemia, unspecified; J44.9 Chronic obstructive pulmonary disease, unspecified; E11.9 Type 2 diabetes mellitus without complications; E78.00 Pure hypercholesterolemia, unspecified; Z88.2 Allergy status to sulfonamides; Z79.899 Other long term (current) drug therapy

== ENCOUNTER 2023-07-19 09:01 | Emergency (ER) | payer BC, MEDICAID ==
[~2023-07-19] VITALS: Ht 170.2 cm; Wt 74.8 kg
[2023-07-19] MEDS ORDERED: HYDR-4303 PO (09:49)
[2023-07-19] MEDS ORDERED: HYDROCODONE/APAP 5/325MG TABLET ONE (09:52)
[2023-07-19] MEDS ORDERED: COLCHICINE 0.6 MG TABLET ONE (09:55)
[2023-07-19] MEDS: COLCHICINE 0.6 MG TABLET PO ONE (10:05)
[2023-07-19] MEDS: HYDROCODONE/APAP 5/325MG TABLET PO ONE (10:07)
[2023-07-19 10:38] VITALS: BP 179/90; TEMP 98.6; O2SAT 97
== END 2023-07-19 10:39 | disposition home or self-care (01) ==
LOC: ER 09:03
DX: M10.9 Gout, unspecified (principal); I10 Essential (primary) hypertension; E78.5 Hyperlipidemia, unspecified; J44.9 Chronic obstructive pulmonary disease, unspecified; E11.9 Type 2 diabetes mellitus without complications; F10.10 Alcohol abuse, uncomplicated; F19.10 Other psychoactive substance abuse, uncomplicated; Z88.2 Allergy status to sulfonamides; Y90.9 Presence of alcohol in blood, level not specified

== ENCOUNTER 2023-12-06 21:04 | Emergency (ER) | payer BC, MEDICAID ==
[~2023-12-06] VITALS: Ht 170.2 cm; Wt 80.7 kg
[~2023-12-06 21:04] MED LIST changes: +HYDR-4303 PO
[2023-12-06] MEDS ORDERED: KETOROLAC TROMETHAMINE 15 MG/ML VIAL ONE (22:20)
[2023-12-06] MEDS: KETOROLAC TROMETHAMINE 15 MG/ML VIAL IV ONE (22:27)
[2023-12-06] MEDS: IV NS 0.9% 1,000 ML BAG IV ONE (22:27)
[2023-12-06 22:34] LABS: BASOPHILS # (AUTO) 0.1 K/uL (0.0-0.2); BASOPHILS % (AUTO) 1.2 % (0.0-2.0); EOSINOPHILS # (AUTO) 0.1 K/uL (0.0-0.7); EOSINOPHILS % (AUTO) 1.7 % (0.0-6.0); HEMATOCRIT 36 % (39-51); HEMOGLOBIN 11.6 g/dL (13.5-17.5); LYMPHOCYTES # (AUTO) 1.9 K/uL (0.8-4.8); LYMPHOCYTES % (AUTO) 26.2 % (20.0-44.0); MEAN CORPUSCULAR HEMOGLOBIN 28 PG (26.0-33.0); MEAN CORPUSCULAR HGB CONC 32 g/dl (31.0-36.0); MEAN CORPUSCULAR VOLUME 88 fL (80-96); MONOCYTES # (AUTO) 0.9 K/uL (0.1-1.30); MONOCYTES % (AUTO) 12.1 % (2.0-12.0); NEUTROPHILS # (AUTO) 4.2 K/uL (1.8-8.9); NEUTROPHILS % (AUTO) 58.8 % (43.0-81.0); PLATELET COUNT (AUTO) 327 K/uL (150-450); RED BLOOD CELL COUNT(AUTO) 4.08 MIL/uL (4.5-6.0); RED CELL DISTRIBUTION WIDTH 14.5 % (11.5-15.0); WHITE BLOOD COUNT (AUTO) 7.2 K/uL (4.3-11.0)
[2023-12-06 22:44] LABS: CALCIUM, SERUM 8.2 mg/dL (8.5-10.1); CREATININE 2.3 mg/dL (0.6-1.3); POTASSIUM 4.5 mmol/L (3.5-5.1)
[2023-12-06 22:50] LABS: ALBUMIN 2.7 g/dL (3.4-5.0); BILIRUBIN,DIRECT 0.1 mg/dL (0.0-0.2); BILIRUBIN,TOTAL 0.2 mg/dL (0.2-1.0); TOTAL PROTEIN, SERUM 6.2 g/dL (6.4-8.2)
[2023-12-06] MEDS ORDERED: oxyCODONE/APAP (5/325 MG) 1 UDTAB TABLET ONE (23:58)
[2023-12-07] MEDS: oxyCODONE/APAP (5/325 MG) 1 UDTAB TABLET PO ONE (00:02)
[2023-12-07] MEDS ORDERED: CIPR-263 PO (00:23)
[2023-12-07] MEDS ORDERED: CIPROFLOXACIN HCL 500 MG TABLET ONE (00:29)
[2023-12-07] MEDS: CIPROFLOXACIN HCL 250 MG TABLET PO ONE (00:42)
[2023-12-07 01:01] VITALS: BP 131/71; TEMP 98; O2SAT 100
[2023-12-07 01:58] LABS: APPEARANCE,URINE CLEAR (CLEAR); BILIRUBIN,URINE NEGATIVE (NEGATIVE); BLOOD, URINE NEGATIVE Ery/uL (NEGATIVE); COLOR,URINE YELLOW (YELLOW); KETONES,URINE NEGATIVE (NEGATIVE); LEUKOCYTE ESTERASE ,URINE NEGATIVE (NEGATIVE); NITRITE, URINE NEGATIVE (NEGATIVE); PROTEIN,URINE 3+ mg/dl (NEGATIVE); UGLUCOSE TRACE mg/dL (NEGATIVE); UROBILINOGEN,URINE 0.2 EU/dL (0.2)
[2023-12-07 02:22] LABS: ADD URINE CULTURE YES; BACTERIA,URINE 2+ /HPF (None Seen); WBC,URINE NONE SEEN /HPF (0-3)
[2023-12-07 02:23] LABS: COARSE GRANULAR CASTS,URINE Moderate /LPF (None Seen)
== END 2023-12-07 01:02 | disposition home or self-care (01) ==
LOC: ER 21:06
DX: N39.0 Urinary tract infection, site not specified (principal); E11.22 Type 2 diabetes mellitus with diabetic chronic kidney disease; E78.00 Pure hypercholesterolemia, unspecified; I12.9 Hypertensive chronic kidney disease with stage 1 through stage 4 chronic kidney disease, or unspecified chronic kidney disease; N18.9 Chronic kidney disease, unspecified; G47.30 Sleep apnea, unspecified; I25.10 Atherosclerotic heart disease of native coronary artery without angina pectoris; Z95.1 Presence of aortocoronary bypass graft; Z87.891 Personal history of nicotine dependence; Z79.84 Long term (current) use of oral hypoglycemic drugs; Z79.899 Other long term (current) drug therapy; Z79.82 Long term (current) use of aspirin; Z88.2 Allergy status to sulfonamides
CPT/HCPCS: 36415; 80048-TC; 80076-TC; 81001; 83690-TC; 85025-TC; 87086-TC; J1885; J7030